=== PATIENT | female | born 1985 | race Two or more races ===

== ENCOUNTER 2021-10-18 19:05 | Emergency (ER) | payer OTHER ==
[~2021-10-18] VITALS: Ht 167.6 cm; Wt 65.8 kg
--- NOTE | 2021-10-18 19:30 | NUR ---
pt ambulated to room 1a, c/o nausea vomited.
--- NOTE | 2021-10-18 19:33 | NUR ---
Dr. Cullen in room for SHERIE.
[2021-10-18] MEDS ORDERED: ONDANSETRON 4 MG/2 ML VIAL IV ONE ×2 (19:45→20:45)
[2021-10-18] MEDS ORDERED: IV NORMAL SALINE 1000 ML BAG IV ONE ×3 (19:45→21:45)
[2021-10-18] MEDS ORDERED: PANTOPRAZOLE SODIUM 40 MG VIAL IV ONE (19:45)
[2021-10-18] MEDS ORDERED: ONDANSETRON 4 MG/2 ML VIAL ONE ×2 (20:12→20:56)
[2021-10-18] MEDS ORDERED: PANTOPRAZOLE SODIUM 40 MG VIAL ONE (20:13)
[2021-10-18 20:16] LABS: HEMATOCRIT 42.9 % (31.2-41.9); MEAN CORPUSCULAR HEMOGLOBIN 27.8 uug (24.7-32.8); MEAN CORPUSCULAR VOLUME 81.8 fL (75.5-95.3); PLATELET COUNT (AUTO) 267 K/uL (179-408)
[2021-10-18 20:25] LABS: CARBON DIOXIDE 23 mmol/L (21-32); CHLORIDE 103 mmol/L (98-107); CREATININE 0.9 mg/dL (0.6-1.3); GLUCOSE 148 mg/dL (74-106); POTASSIUM 3.5 mmol/L (3.5-5.1); UREA NITROGEN, BLOOD 11 mg/dL (7-18)
[2021-10-18 20:32] LABS: ALANINE AMINOTRANSFERASE 25 U/L (14-59); ALKALINE PHOSPHATASE 68 U/L (50-136); ASPARTATE AMINOTRANSFERASE 16 U/L (15-37); BILIRUBIN,DIRECT 0.1 mg/dL (0.0-0.2); BILIRUBIN,TOTAL 0.6 mg/dL (0.2-1.0); LIPASE 30 U/L (73-393); TOTAL PROTEIN, SERUM 7.9 g/dL (6.4-8.2)
[2021-10-18] MEDS ORDERED: diphenhydrAMINE 50 MG/1 ML VIAL IV ONE (22:30)
[2021-10-18] MEDS ORDERED: METOCLOPRAMIDE HCL 10 MG/2 ML VIAL IV ONE (22:30)
[2021-10-18] MEDS ORDERED: METOCLOPRAMIDE HCL 10 MG/2 ML VIAL ONE (22:44)
[2021-10-18] MEDS ORDERED: diphenhydrAMINE 50 MG/1 ML VIAL ONE (22:44)
[2021-10-18] MEDS ORDERED: OMEP40CA21 PO (22:57)
[2021-10-18] MEDS ORDERED: ONDA4TAB5 PO (22:57)
--- NOTE | 2021-10-18 23:31 | NUR ---
Patient discharged to home in stable condition. Written and verbal after care instructions given. Patient verbalizes understanding of instructions. Stressed follow up or return to ER for worsening s/s. pt ambulated without assist, denies nausea
[2021-10-18 23:33] VITALS: BP 130/80
== END 2021-10-18 23:36 | disposition home or self-care (01) ==
LOC: ER 19:08
DX: R11.2 Nausea with vomiting, unspecified (principal); E86.0 Dehydration; R10.84 Generalized abdominal pain; Z82.49 Family history of ischemic heart disease and other diseases of the circulatory system; D72.829 Elevated white blood cell count, unspecified
CPT/HCPCS: 36415; 80048; 80076; 83690; 84702; 85025; 96361; 96374; 96375; 96376; 99284; C9113; J1200; J2405 ×2; J2765; A4663; J7030